=== PATIENT | male | born 1965 | race Hispanic/Latino ===

== ENCOUNTER 2023-11-14 13:43 | Emergency (ER) | payer BC ==
[~2023-11-14] VITALS: Ht 180.3 cm; Wt 95.3 kg
[2023-11-14] MEDS ORDERED: NAPR-1180 PO (15:08)
[2023-11-14 15:24] VITALS: BP 142/72; PULSE 78; RESP 18; O2SAT 98
[2023-11-14] MEDS: KETOROLAC 30MG VIAL (30MG/ML) IM ONE (15:36)
== END 2023-11-14 16:20 | disposition home or self-care (01) ==
LOC: EDH 13:43
DX: S82.491A Other fracture of shaft of right fibula, initial encounter for closed fracture (principal); I10 Essential (primary) hypertension; E03.9 Hypothyroidism, unspecified; E78.00 Pure hypercholesterolemia, unspecified; Z98.890 Other specified postprocedural states; W01.0XXA Fall on same level from slipping, tripping and stumbling without subsequent striking against object, initial encounter; Y93.89 Activity, other specified; Y92.89 Other specified places as the place of occurrence of the external cause; Y99.8 Other external cause status
CPT/HCPCS: 99284; 29515; 73610; 96372; J1885